=== PATIENT | male | born 1995 | race Hispanic/Latino ===

== ENCOUNTER 2018-11-04 07:30 | Emergency (ER) | payer SELFPAY ==
[2018-11-04 08:32] LABS: Absolute Lymphocytes (CBC) 1.7 K/uL (0.7-4.9); Absolute Monocytes 0.4 K/uL (0.1-1.3); Absolute Neutrophil 4.4 K/uL (1.8-8.0); Basophils % 0.6 % (0-1.3); Eosinophils % 0.8 % (0-4.4); Hematocrit 43.6 % (39.6-49.0); Lymphocytes % 25.3 % (15.3-44.8); MPV 9.2 fL (7.6-11.3); Monocytes % 6.6 % (3.3-12.3); RBC Red Blood Cell Count 4.94 M/uL (4.33-5.43)
[2018-11-04 08:37] LABS: Protime INR 1.04
[2018-11-04] MEDS ORDERED: NA CHLORIDE 0.9% 1,000 ML ONE ×3 (08:42→11:20)
[2018-11-04 08:54] LABS: Barbiturates NEGATIVE (NEGATIVE); Benzodiazepines NEGATIVE (NEGATIVE); Cocaine NEGATIVE (NEGATIVE); METHAMPHETAM NEGATIVE (NEGATIVE); Methadone NEGATIVE (NEGATIVE); Opiates NEGATIVE (NEGATIVE); Phencyclidine NEGATIVE (NEGATIVE); THC Cannibis NEGATIVE (NEGATIVE)
[2018-11-04 08:58] LABS: ALT/SGPT 95 U/L (12-78); AST/SGOT 34 U/L (15-37); Albumin 4.5 g/dL (3.4-5.0); Alkaline Phosphatase 76 U/L (45-117); BUN Blood Urea Nitrogen 21 mg/dL (7-18); Bicarbonate 27 mmol/L (21-32); Bilirubin Direct < 0.1 mg/dL (0-0.2); Bilirubin Total 0.2 mg/dL (0.2-1.0); Creatine Phosphokinase 189 U/L (39-308); Glucose Level 109 mg/dL (74-106); Magnesium 2.1 mg/dL (1.8-2.4); NT PRO-BNP 9 pg/mL (<125); Potassium 3.5 mmol/L (3.5-5.1); Sodium Level 139 mmol/L (136-145); T3 Free 3.51 pg/mL (2.18-3.98); Troponin (Emerg Dept Use Only) < 0.02 ng/mL (0.0-0.045)
[2018-11-04 09:14] LABS: Urine Blood NEGATIVE (NEG); Urine Glucose NEGATIVE (NEG); Urine Protein 1+ (NEG)
[2018-11-04] MEDS ORDERED: LORazepam 2 MG/ML VIAL ONE ×2 (09:28→12:02)
--- NOTE | 2018-11-04 09:39 | RAD REPORT ---
EXAM DESCRIPTION: RAD - Chest Single View - 11/04/2018 8:42 am CLINICAL HISTORY: PALPITATIONS Chest pain. COMPARISON: CHEST SINGLE VIEW dated 07/02/2015 FINDINGS: Portable technique limits examination quality. The lungs are grossly clear. The heart is normal in size. No displaced fractures. IMPRESSION: No acute intrathoracic process suspected.
--- NOTE | 2018-11-04 11:40 | ER ---
Nurse's Notes [facility] Name: Harrison Chaes Age: 23 yrs Sex: Male : 1995 Arrival Date: 11/04/2018 Time: 07:34 Bed 16 Private MD: Diagnosis: Insomnia;Unspecified mood [affective] disorder-Depression Presentation: 11/04 08:09 Presenting complaint: Patient states: "I haven't been able to sleep in about 6 months." ss PT denies current suicidal/ homicidal ideations. Pt reports he feels anxious and depressed because of his inability to sleep. Transition of care: patient was not received from another setting of care. Onset of symptoms was March 2018. Risk Assessment: Do you want to hurt yourself or someone else? Patient reports no desire to harm self or others. Initial Sepsis Screen: Does the patient meet any 2 criteria? Does the patient have a suspected source of infection? No. Patient's initial sepsis screen is negative. Care prior to arrival: None. 08:09 Method Of Arrival: Ambulatory ss 08:09 Acuity: HERON 2 ss Historical: - Allergies: 08:14 No Known Allergies; ss - Home Meds: 08:14 None [Active]; ss - PMHx: 08:14 None; ss - PSHx: 08:14 R hand; ss - Immunization history:: Adult Immunizations up to date. - Social history:: Smoking status: Patient/guardian denies using tobacco. - Ebola Screening: : Patient denies exposure to infectious person Patient denies travel to an Ebola-affected area in the 21 days before illness onset. Screenin:29 Abuse screen: Denies threats or abuse. Nutritional screening: No deficits noted. tw2 Tuberculosis screening: No symptoms or risk factors identified. Fall Risk None identified. Assessment: 08:00 General: Appears uncomfortable, Behavior is anxious, Denies fever, Pt. reports not rb1 being able to sleep for several months. He admits to taking two Xanax last night to try to get some sleep.. Pain: Denies pain. Neuro: Level of Consciousness is awake, alert, obeys commands, Oriented to person, place, time, situation. Cardiovascular: Capillary refill < 3 seconds is brisk in bilateral fingers Rhythm is sinus tachycardia. Respiratory: Airway is patent Respiratory effort is even, unlabored, Respiratory pattern is regular, symmetrical. GI: No signs and/or symptoms were reported involving the gastrointestinal system. : No signs and/or symptoms were reported regarding the genitourinary system. Derm: Skin is pink, warm \\T\\ dry. Musculoskeletal: Range of motion: intact in all extremities. 09:00 Reassessment: pt. is feeling anxious. Provider notified. rb1 11:00 Reassessment: Patient appears in no apparent distress at this time. Patient and/or rb1 family updated on plan of care and expected duration. Pain level reassessed. Patient is alert, oriented x 3, equal unlabored respirations, skin warm/dry/pink. Patient denies pain at this time. 12:00 Reassessment: Patient appears in no apparent distress at this time. No changes from [facility] previously documented assessment. 12:00 Reassessment: Discharge pending due to waiting for father to come and transport the pt. rb1 home. 12:26 Reassessment: Pt. continues to wait for transportation due to Ativan administration. rb1 13:00 Reassessment: Patient appears in no apparent distress at this time. Patient and/or rb1 family updated on plan of care and expected duration. Pain level reassessed. Patient is alert, oriented x 3, equal unlabored respirations, skin warm/dry/pink. Mother is on her way. Patient denies pain at this time. Vital Signs: 08:14 BP 133 / 96; Pulse 116; Resp 23; Temp 99.6(TE); Pulse Ox 99% on R/A; Weight 86.18 kg; Height 6 ft. 0 in. (182.88 cm); Pain 0/10; 09:00 BP 174 / 85; Pulse 123; Resp 22; Pulse Ox 100% on R/A; Pain 0/10; rb1 11:00 BP 123 / 94; Pulse 103; Resp 16; Pulse Ox 100% on R/A; Pain 0/10; rb1 12:00 BP 139 / 75; Pulse 98; Resp 15; Pulse Ox 100% ; Pain 0/10; rb1 13:00 BP 128 / 81; Pulse 95; Resp 16; Pulse Ox 100% on R/A; Pain 0/10; rb1 08:14 Body Mass Index 25.77 (86.18 kg, 182.88 cm) ED Course: 07:34 Patient arrived in ED. mr 07:58 Page, Rene, PA is PHCP. cp 07:58 Rene Barnard MD is Attending Physician. cp 08:13 Triage completed. ss 08:14 Arm band placed on right wrist. ss 08:27 Lakshmi Cali, RN is Primary Nurse. rb1 08:29 Bed in low position. Call light in reach. potline monitor on. Pulse ox on. NIBP on. tw2 08:41 X-ray completed. Portable x-ray completed in exam room. Patient tolerated procedure la2 well. 08:41 Initial lab(s) drawn, by me, sent to lab. EKG done. Inserted saline lock: 20 gauge in em1 left antecubital area, using aseptic technique. Blood collected. 08:42 XRAY Chest (1 view) In Process Unspecified. EDMS 09:21 Inserted saline lock: 20 gauge in right antecubital area, using aseptic technique. em1 Missed attempt(s): 20 gauge in right hand. Bleeding controlled, band aid applied, catheter tip intact. 13:12 No provider procedures requiring assistance completed. IV discontinued, intact, rb1 bleeding controlled, No redness/swelling at site. Pressure dressing applied. Administered Medications: 08:30 Drug: NS 0.9% 1000 ml Route: IV; Rate: 1 bolus; Site: left antecubital; rb1 09:22 Drug: NS 0.9% 1000 ml Route: IV; Rate: 1 bolus; Site: right antecubital; rb1 10:38 Follow up: IV Status: Completed infusion rb1 09:22 Drug: Ativan 0.5 mg Route: IVP; Site: right antecubital; rb1 09:40 Follow up: Response: No adverse reaction; Anxiety decreased rb1 11:10 Drug: NS 0.9% 1000 ml Route: IV; Rate: 1 bolus; Site: left antecubital; rb1 12:16 Follow up: IV Status: Completed infusion rb1 12:01 Drug: Ativan 0.5 mg Route: IVP; Site: left antecubital; rb1 12:16 Follow up: Response: No adverse reaction; Anxiety decreased rb1 Outcome: 11:39 Discharge ordered by MD. cp 13:12 Patient left the ED. rb1 13:12 Discharged to home ambulatory, with family. rb1 13:12 Condition: stable 13:12 Discharge instructions given to patient, Instructed on discharge instructions, follow up and referral plans. Demonstrated understanding of instructions, follow-up care, Prescriptions given X none Signatures: Dispatcher [employer] EDMS Trinity Alonso, Edson em1 Dana Gonzalez RN RN ss Rene Davey PA PA cp Barber, Rebecca, RN RN rb1 Lisa Akhtar RN RN tw2 Patricia Echevarria2 Corrections: (The following items were deleted from the chart) 09:25 09:00 Reassessment: pt. is feeling anxious. rb1 rb1 14:50 14:47 Patient left the ED. rb1 rb1
--- NOTE | 2018-11-04 11:41 | EDPHYS ---
Physician Documentation [facility] Name: Harrison Chase Age: 23 yrs Sex: Male : 1995 Arrival Date: 11/04/2018 Time: 07:34 Bed 16 Private MD: ED Physician Rene Barnard HPI: 11/04 08:12 This 23 yrs old Male presents to ER via Unassigned with complaints of Troubl cp sleeping,fast heart rate. 08:12 The patient presents with a history of heart racing. cp 08:12 Context: The symptoms occur at rest. Onset: The symptoms/episode began/occurred today. cp Duration: The patient or guardian reports a single episode, that is still ongoing. 08:12 Associated signs and symptoms: Pertinent positives: insomnia, depression, Pertinent cp negatives: anxiety, chest pain, fever, lightheadedness, SOB, syncope. Historical: - Allergies: 08:14 No Known Allergies; ss - Home Meds: 08:14 None [Active]; ss - PMHx: 08:14 None; ss - PSHx: 08:14 R hand; ss - Immunization history:: Adult Immunizations up to date. - Social history:: Smoking status: Patient/guardian denies using tobacco. - Ebola Screening: : Patient denies exposure to infectious person Patient denies travel to an Ebola-affected area in the 21 days before illness onset. ROS: 08:15 Constitutional: Negative for body aches, chills, fever, poor PO intake. cp 08:15 Eyes: Negative for injury, pain, redness, and discharge. cp 08:15 ENT: Negative for drainage from ear(s), ear pain, sore throat, difficulty swallowing, difficulty handling secretions. 08:15 Cardiovascular: Positive for palpitations, Negative for chest pain, edema. 08:15 Respiratory: Negative for cough, shortness of breath, wheezing. 08:15 Abdomen/GI: Negative for abdominal pain, nausea, vomiting, and diarrhea. 08:15 Back: Negative for pain at rest, pain with movement, radiated pain. 08:15 Neuro: Negative for altered mental status, headache, weakness. 08:15 Psych: Positive for insomnia. 08:15 All other systems are negative. Exam: 08:11 ECG was reviewed by the Attending Physician. cp 08:20 Constitutional: The patient appears in no acute distress, alert, awake, cp non-diaphoretic, non-toxic, well developed, well nourished. 08:20 Head/Face: Normocephalic, atraumatic. Eyes: Pupils equal round and reactive to light, cp extra-ocular motions intact. Lids and lashes normal. Conjunctiva and sclera are non-icteric and not injected. Cornea within normal limits. Periorbital areas with no swelling, redness, or edema. ENT: Nares patent. No nasal discharge, no septal abnormalities noted. Tympanic membranes are normal and external auditory canals are clear. Oropharynx with no redness, swelling, or masses, exudates, or evidence of obstruction, uvula midline. Mucous membranes moist. Neck: Trachea midline, no thyromegaly or masses palpated, and no cervical lymphadenopathy. Supple, full range of motion without nuchal rigidity, or vertebral point tenderness. No Meningismus. Chest/axilla: Normal chest wall appearance and motion. Nontender with no deformity. No lesions are appreciated. 08:20 Cardiovascular: Rate: tachycardic, Rhythm: regular, Pulses: Pulses are 2+ in right radial artery and left radial artery. Edema: is not appreciated, JVD: is not appreciated. 08:20 Respiratory: the patient does not display signs of respiratory distress, Respirations: normal, no use of accessory muscles, no retractions, no splinting, no tachypnea, labored breathing, is not present, Breath sounds: are clear throughout, no decreased breath sounds, no stridor, no wheezing. 08:20 Abdomen/GI: Inspection: abdomen appears normal, Bowel sounds: active, all quadrants, Palpation: abdomen is soft and non-tender, in all quadrants, rebound tenderness, is not appreciated, voluntary guarding, is not appreciated, involuntary guarding, is not appreciated. 08:20 Back: pain, is absent, ROM is normal. 08:20 Skin: cellulitis, is not appreciated, no rash present. 08:20 Neuro: Orientation: to person, place \T\ time. Mentation: is normal, Cerebellar function: is grossly normal, Motor: moves all fours, strength is normal, Sensation: is normal. 09:00 ECG was reviewed by the Attending Physician. cp Vital Signs: 08:14 BP 133 / 96; Pulse 116; Resp 23; Temp 99.6(TE); Pulse Ox 99% on R/A; Weight 86.18 kg; ss Height 6 ft. 0 in. (182.88 cm); Pain 0/10; 09:00 BP 174 / 85; Pulse 123; Resp 22; Pulse Ox 100% on R/A; Pain 0/10; rb1 11:00 BP 123 / 94; Pulse 103; Resp 16; Pulse Ox 100% on R/A; Pain 0/10; rb1 12:00 BP 139 / 75; Pulse 98; Resp 15; Pulse Ox 100% ; Pain 0/10; rb1 13:00 BP 128 / 81; Pulse 95; Resp 16; Pulse Ox 100% on R/A; Pain 0/10; rb1 08:14 Body Mass Index 25.77 (86.18 kg, 182.88 cm) ss MDM: 08:03 Patient medically screened. cp 11:38 Data reviewed: vital signs, nurses notes, lab test result(s), EKG, radiologic studies, cp plain films, I have discussed the patient's presentation/case with the attending Emergency Department Physician; and as a result, I will discharge patient. 11:38 Test interpretation: by ED physician or midlevel provider: ECG, plain radiologic cp studies. Counseling: I had a detailed discussion with the patient and/or guardian regarding: the historical points, exam findings, and any diagnostic results supporting the discharge/admit diagnosis, lab results, radiology results, the need for outpatient follow up, for definitive care, a family practitioner, to return to the emergency department if symptoms worsen or persist or if there are any questions or concerns that arise at home. Response to treatment: the patient's symptoms have markedly improved after treatment, and as a result, I will discharge patient. ED course: VSS. Patient observed resting in ED. Will discharge to home with family member for continued monitoring. 11/04 08:09 Order name: Basic Metabolic Panel; Complete Time: 09:10 cp 11/04 09:10 Interpretation: Normal except: GLUC 109; BUN 21. cp 11/04 08:09 Order name: CBC with Diff; Complete Time: 09:10 cp 11/04 08:09 Order name: LFT's; Complete Time: 09:10 cp 11/04 08:09 Order name: Magnesium; Complete Time: 09:10 cp 11/04 08:09 Order name: NT PRO-BNP; Complete Time: 09:10 cp 11/04 08:09 Order name: PT-INR; Complete Time: 09:10 cp 11/04 08:09 Order name: Troponin (emerg Dept Use Only); Complete Time: 09:10 cp 11/04 08:09 Order name: XRAY Chest (1 view); Complete Time: 10:45 cp 11/04 08:09 Order name: UDS; Complete Time: 09:10 cp 11/04 08:09 Order name: CK; Complete Time: 09:10 cp 11/04 08:09 Order name: ETOH Level; Complete Time: 09:10 cp 11/04 08:11 Order name: TSH; Complete Time: 09:10 cp 11/04 08:11 Order name: T3 Free; Complete Time: 09:10 cp 11/04 08:35 Order name: Urine Dipstick--Ancillary (enter results); Complete Time: 09:20 bd 11/04 08:09 Order name: EKG; Complete Time: 08:10 cp 11/04 08:09 Order name: Cardiac monitoring; Complete Time: 08:40 cp 11/04 08:09 Order name: EKG - Nurse/Tech; Complete Time: 08:41 cp 11/04 08:09 Order name: IV Saline Lock; Complete Time: 08:41 cp 11/04 08:09 Order name: Labs collected and sent; Complete Time: 08:41 cp 11/04 08:09 Order name: O2 Per Protocol; Complete Time: 08:47 cp 11/04 08:09 Order name: O2 Sat Monitoring; Complete Time: 08:47 cp 11/04 08:51 Order name: IV; Complete Time: 09:08 cp 11/04 13:29 Order name: EKG Electrocardiogram EDMS EC:11 Rate is 114 beats/min. Rhythm is regular. HI interval is normal. QRS interval is cp normal. QT interval is normal. Interpreted by me. Reviewed by me. 09:00 Rate is 112 beats/min. Rhythm is regular. HI interval is normal. QRS interval is cp normal. QT interval is normal. Interpreted by me. Reviewed by me. Administered Medications: 08:30 Drug: NS 0.9% 1000 ml Route: IV; Rate: 1 bolus; Site: left antecubital; rb1 09:22 Drug: NS 0.9% 1000 ml Route: IV; Rate: 1 bolus; Site: right antecubital; rb1 10:38 Follow up: IV Status: Completed infusion rb1 09:22 Drug: Ativan 0.5 mg Route: IVP; Site: right antecubital; rb1 09:40 Follow up: Response: No adverse reaction; Anxiety decreased rb1 11:10 Drug: NS 0.9% 1000 ml Route: IV; Rate: 1 bolus; Site: left antecubital; rb1 12:16 Follow up: IV Status: Completed infusion rb1 12:01 Drug: Ativan 0.5 mg Route: IVP; Site: left antecubital; rb1 12:16 Follow up: Response: No adverse reaction; Anxiety decreased rb1 Disposition: 11/05 07:35 Co-signature as Attending Physician, Rene Barnard MD I agree with the assessment and darwin plan of care. Disposition: 11/04/18 11:39 Discharged to Home. Impression: Insomnia, Unspecified mood [affective] disorder - Depression. - Condition is Stable. - Discharge Instructions: Insomnia, Persistent Depressive Disorder. - Medication Reconciliation Form, Thank You Letter, Antibiotic Education, Prescription Opioid Use form. - Follow up: Private Physician; When: 1 - 2 days; Reason: Recheck today's complaints. - Problem is an ongoing problem. - Symptoms have improved. Signatures: Dispatcher [employer] EDMS Rene Barnard MD MD cha Smirch, Shelby, RN RN Rene Cruz PA PA cp Barber, Rebecca, RN RN rb1 Corrections: (The following items were deleted from the chart) 11/04 14:07 11:39 11/04/2018 11:39 Discharged to Home. Impression: Insomnia. Condition is Stable. cp Forms are Medication Reconciliation Form, Thank You Letter, Antibiotic Education, Prescription Opioid Use. Follow up: Private Physician; When: 1 - 2 days; Reason: Recheck today's complaints. Problem is an ongoing problem. Symptoms have improved. cp 14:08 14:07 11/04/2018 11:39 Discharged to Home. Impression: Insomnia; Unspecified mood cp [affective] disorder. Condition is Stable. Discharge Instructions: Insomnia. Forms are Medication Reconciliation Form, Thank You Letter, Antibiotic Education, Prescription Opioid Use. Follow up: Private Physician; When: 1 - 2 days; Reason: Recheck today's complaints. Problem is an ongoing problem. Symptoms have improved. cp 14:47 14:08 11/04/2018 11:39 Discharged to Home. Impression: Insomnia; Unspecified mood rb1 [affective] disorder - Depression. Condition is Stable. Discharge Instructions: Insomnia, Persistent Depressive Disorder. Forms are Medication Reconciliation Form, Thank You Letter, Antibiotic Education, Prescription Opioid Use. Follow up: Private Physician; When: 1 - 2 days; Reason: Recheck today's complaints. Problem is an ongoing problem. Symptoms have improved. cp
--- NOTE | 2018-11-04 20:18 | EKG ---
Test Date: 2018-11-04 Test Time: 08:01:01 Char Filter Operator Helper: SUSAN MEASUREMENT RESULTS: Intervals: Rate: 114 IA: 128 QRSD: 90 QT: 286 QTc: 394 Kathleen: P: 79 IA: 128 QRS: 81 T: 5 INTERPRETIVE STATEMENTS: Sinus tachycardia Nonspecific T wave abnormality Abnormal ECG Compared to ECG 07/02/2015 00:12:11 No significant changes Electronically Signed On 11-04-18 20:17:49 CDT by Rene Kenyon
== END 2018-11-04 14:47 | disposition home or self-care (01) ==
LOC: ER 07:30
DX: G47.00 Insomnia, unspecified (principal); F32.9 Major depressive disorder, single episode, unspecified
CPT/HCPCS: 36415; 71045; 80048; 80076; 80307; 80320; 81003; 82550; 83735; 83880; 84443; 84481; 84484; 85025; 85610; 93005; 99285; J7030

== ENCOUNTER 2023-04-09 13:52 | Emergency (ER) | payer OTHER ==
--- OUTSIDE RECORDS SUMMARY | 2023-04-09 15:00 | XMS REPORT | Continuity of Care Document ---
:1995 Author Organization [facility] t Address [address] [place] [address] Care Team Providers Name Role Phone Unavailable Unavailable Unavailable Problems This patient has no known problems. Allergies, Adverse Reactions, Alerts This patient has no known allergies or adverse reactions. Medications This patient has no known medications. Procedures This patient has no known procedures. Encounters Start End Encounter Admission Attending Care Care Encounter Source Date/Time Date/Time Type Type Clinicians Facility Department ID 2023-03-02 2023-03-02 Outpatient [facility] [id number] Bret 10:23:46 10:23:46 [id number] Ian Randle 2022-09-26 2022-09-26 Outpatient [facility] Bret 10:03:06 10:03:06 [id number] Ian Randle 2022-07-12 2022-07-12 Outpatient [facility] [id number] Bret 16:05:23 16:05:23 [id number] Ian Randle 2022-07-11 2022-07-11 Outpatient [facility] [id number] Bret 09:53:37 09:53:37 [id number] Ian Randle Results Test Description Test Time Test Comments Results Result Comments Source COMPREHENSIVE METABOLIC PANEL 2022-08-26 06:23:16 Test Item Value Reference Range Interpretation Comme nts GLUCOSE (test code = 2217) 94 MG/DL 70-99 BUN (test code = 2208) 18 MG/DL 6-20 CREATININE (test code = 1.05 MG/DL 0.80-1.40 2213) eGFR (2020 CKD-EPI) (test 99 ML/MIN/1.73 >60 code = 24546) CALC BUN/CREAT (test code = 17 RATIO 02-08) SODIUM (test code = 223) 140 MEQ/L 133-146 POTASSIUM (test code = 2228) 3.8 MEQ/L 3.5-5.4 CHLORIDE (test code = 2215) 103 MEQ/L 95-107 CARBON DIOXIDE (test code = 24 MEQ/L -2205) CALCIUM (test code = 220) 9.6 MG/DL 8.5-10.5 PROTEIN, TOTAL (test code = 7.8 G/DL 6.1-8.3 2228) ALBUMIN (test code = 220) 5.1 G/DL 3.5-5.2 CALC GLOBULIN (test code = 2.7 G/DL 1.9-3.7 2239) CALC A/G RATIO (test code = 1.9 RATIO 1.0-2.6 2233) BILIRUBIN, TOTAL (test code 0.4 MG/DL See_Comment [Automated message] The = 2206) system which ge nerated this result transmit melvi reference range: <=1.2. T he reference range was not u sed to interpret this result as normal/abnormal . ALKALINE PHOSPHATASE (test 79 U/L 40-115 code = 2204) AST (test code = 2218) 23 U/L 9-50 ALT (test code = 2219) 39 U/L 5-50 LIPID [id number] 06:23:16 Test Item Value Reference Range Interpretation Comments CHOLESTEROL (test 169 MG/DL <200 code = 2210) TRIGLYCERIDES (test 51 MG/DL <150 code = 2232) HDL CHOLESTEROL (test 50 MG/DL >39 code = 2220) CALC LDL CHOL (test 106 MG/DL <100 H NOTE: C ALCULATED LDL code = 2237) IS BASED ON WAYNE-PIZARRO METHOD WHICHINCLUDES ADJUSTABLE TRIGLYCERIDE:VL DL CHOLESTEROL RAT IO.THIS FACTOR VARIES B Y MEASURED TRIGLY CERIDE AND NON-HDLCHOL ESTEROL CONCENTRATIONS WITH INCREASED CALCU LATED LDL SEENIN HIGH ER TRIGLYCERIDE OR LOWER NON-HDL SPECIME NS. FOR MOREINFORMATION , SEE CLIENT ANNOUNCE MENT AT [email or web address] RATIO LDL/HDL 2.12 RATIO <3.55 UNLESS O THERWISE (test code = 2238) INDICATED , ALL TESTING PERFORMED [facility], [place]. [address] [place] [address] [facility] DIRECTOR: DEBBIE JEAN M.D. [facility] NUMBER [id number] [facility] [place] N O. [id number]
[2023-04-09] MEDS ORDERED: NA CHLORIDE 0.9% 1,000 ML ONE (15:08)
[2023-04-09 15:09] LABS: Absolute Lymphocytes (CBC) 1.1 K/uL (0.7-4.9); Hematocrit 43.6 % (39.6-49.0); Lymphocytes % 16.9 % (15.3-44.8); MCV 87.3 fL (80-100); MPV 8.5 fL (7.6-11.3); Platelets 236 thou/uL (152-406); RBC Red Blood Cell Count 4.99 M/uL (4.33-5.43)
[2023-04-09 15:12] LABS: Protime INR 1.12
[2023-04-09 15:18] LABS: Specific Gravity 1.015 (1.005-1.030); Urine Bacteria <20 /HPF (<20); Urine Bilirubin NEGATIVE (Negative); Urine Blood Negative (Negative); Urine Clarity Turbid (Clear); Urine Color Light-Yellow (Yellow); Urine Glucose NEGATIVE (Negative); Urine Mucus Slight /HPF (None Seen); Urine Protein NEGATIVE (Negative); Urine RBC <5 /HPF (None Seen); Urine Urobilinogen Normal (Normal); Urine pH 6.5 (5.0-7.0)
[2023-04-09 15:20] LABS: Barbiturates NEGATIVE (NEGATIVE); Benzodiazepines NEGATIVE (NEGATIVE); Cocaine NEGATIVE (NEGATIVE); METHAMPHETAM NEGATIVE (NEGATIVE); Methadone NEGATIVE (NEGATIVE); Opiates NEGATIVE (NEGATIVE); Phencyclidine NEGATIVE (NEGATIVE); THC Cannibis NEGATIVE (NEGATIVE)
[2023-04-09 15:29] LABS: ALT/SGPT 35 U/L (16-61); AST/SGOT 22 U/L (15-37); Albumin 4.2 g/dL (3.4-5.0); Alkaline Phosphatase 66 U/L (45-117); BUN Blood Urea Nitrogen 8 mg/dL (7-18); Bicarbonate 25 mEq/L (21-32); Bilirubin Direct 0.2 mg/dL (0-0.2); Bilirubin Indirect, Calculated 0.6 mg/dL (0.2-0.8); Bilirubin Total 0.8 mg/dL (0.2-1.0); Glomerular Filtration Rate 115 ml/min (=/>90); Glucose Level 129 mg/dL (74-106); Sodium Level 135 mEq/L (136-145)
--- NOTE | 2023-04-09 16:40 | EDPHYS ---
Physician Documentation [facility] Name: Harrison Chase Age: 27 yrs Sex: Male : 1995 Arrival Date: 04/09/2023 Time: 13:52 Bed 17 Private MD: ED Physician Rene Barnard HPI: 04/09 16:26 This 27 yrs old Male presents to ER via Ambulatory with complaints of Mental darwin Health Eval. 16:26 The patient presents to the emergency department with anxiety, suicide ideation, and darwin the patient has a plan, to hang oneself. Onset: The symptoms/episode began/occurred 2 day(s) ago. Past psychiatric history: Prior diagnosis: depression, Psychiatric medications include: none. Associated signs and symptoms: Pertinent positives;. Historical: - Allergies: 14:24 No Known Allergies; cm10 - PMHx: 14:24 Hypertensive disorder; Depressive disorder; cm10 - Immunization history:: Adult Immunizations up to date. - Social history:: Smoking status: unknown. ROS: 16:33 Constitutional: Negative for fever, chills, and weight loss, Eyes: Negative for injury, darwin pain, redness, and discharge, ENT: Negative for injury, pain, and discharge, Neck: Negative for injury, pain, and swelling, Cardiovascular: Negative for chest pain, palpitations, and edema, Respiratory: Negative for shortness of breath, cough, wheezing, and pleuritic chest pain, Abdomen/GI: Negative for abdominal pain, nausea, vomiting, diarrhea, and constipation, Back: Negative for injury and pain, : Negative for injury, bleeding, discharge, and swelling, MS/Extremity: Negative for injury and deformity, Skin: Negative for injury, rash, and discoloration, Neuro: Negative for headache, weakness, numbness, tingling, and seizure, Allergy/Immunology: Negative for hives, rash, and allergies, Endocrine: Negative for neck swelling, polydipsia, polyuria, polyphagia, and marked weight changes, Hematologic/Lymphatic: Negative for swollen nodes, abnormal bleeding, and unusual bruising. 16:33 Psych: Positive for anxiety, depression, suicidal ideation. Exam: 16:33 Constitutional: This is a well developed, well nourished patient who is awake, alert, darwin and in no acute distress. Head/Face: Normocephalic, atraumatic. Eyes: Pupils equal round and reactive to light, extra-ocular motions intact. Lids and lashes normal. Conjunctiva and sclera are non-icteric and not injected. Cornea within normal limits. Periorbital areas with no swelling, redness, or edema. ENT: Nares patent. No nasal discharge, no septal abnormalities noted. Tympanic membranes are normal and external auditory canals are clear. Oropharynx with no redness, swelling, or masses, exudates, or evidence of obstruction, uvula midline. Mucous membranes moist. Neck: Trachea midline, no thyromegaly or masses palpated, and no cervical lymphadenopathy. Supple, full range of motion without nuchal rigidity, or vertebral point tenderness. No Meningismus. Chest/axilla: Normal chest wall appearance and motion. Nontender with no deformity. No lesions are appreciated. Cardiovascular: Regular rate and rhythm with a normal S1 and S2. No gallops, murmurs, or rubs. Normal PMI, no JVD. No pulse deficits. Respiratory: Lungs have equal breath sounds bilaterally, clear to auscultation and percussion. No rales, rhonchi or wheezes noted. No increased work of breathing, no retractions or nasal flaring. Abdomen/GI: Soft, non-tender, with normal bowel sounds. No distension or tympany. No guarding or rebound. No evidence of tenderness throughout. Back: No spinal tenderness. No costovertebral tenderness. Full range of motion. Male : Normal genitalia with no discharge or lesions. Skin: Warm, dry with normal turgor. Normal color with no rashes, no lesions, and no evidence of cellulitis. MS/ Extremity: Pulses equal, no cyanosis. Neurovascular intact. Full, normal range of motion. Neuro: Awake and alert, GCS 15, oriented to person, place, time, and situation. Cranial nerves II-XII grossly intact. Motor strength 5/5 in all extremities. Sensory grossly intact. Cerebellar exam normal. Normal gait. Psych: Awake, alert, with orientation to person, place and time. Behavior, mood, and affect are within normal limits. 16:33 ECG was reviewed by the Attending Physician. Vital Signs: 14:21 BP 142 / 90; Pulse 103; Resp 18; Temp 98.2; Pulse Ox 100% ; Weight 88.45 kg; Height 5 cm10 ft. 10 in. ; 22:45 BP 142 / 72; Pulse 101; Resp 17; Temp 98.7(O); Pulse Ox 96% on R/A; Pain 0/10; me1 23:50 BP 138 / 94; Pulse 91; Resp 18 S; Temp 98.1(TE); Pulse Ox 98% on R/A; as6 14:21 Body Mass Index 27.98 (88.45 kg, 177.8 cm) cm10 22:45 Pain Scale: Adult me1 MDM: 14:17 Patient medically screened. darwin 16:35 Differential diagnosis: drug withdrawal. acute psychotic break, depression. Data [facility] reviewed: vital signs, nurses notes, lab test result(s), EKG. Consideration of Admission/Observation Escalation of care including admission/observation considered. I considered the following discharge prescriptions or medication management in the emergency department Medications were administered in the Emergency Department. See MAR. Independent interpretation of the following test(s) in the Emergency Department EKG: See my EKG interpretation above. Test considered but Not performed: X-ray: NO CT, NO CXR. Historians other than the Patient: Family Member: MOM, CONCERNED AND WELL INFORMED. Care significantly affected by the following chronic conditions: Hypertension. Counseling: I had a detailed discussion with the patient and/or guardian regarding the historical points, exam findings, and any diagnostic results supporting the discharge/admit diagnosis, lab results, the need to transfer to another facility, for higher level of care, [facility] does not immediately have the required specialist. 04/09 14:17 Order name: Acetaminophen; Complete Time: 16:17 [facility] 04/09 14:17 Order name: Basic Metabolic Panel; Complete Time: 16:17 [facility] 04/09 14:17 Order name: CBC with Diff; Complete Time: 16:17 [facility] 04/09 14:17 Order name: ETOH Level; Complete Time: 16:17 [facility] 04/09 14:17 Order name: Hepatic Function; Complete Time: 16:17 [facility] 04/09 14:17 Order name: PT-INR; Complete Time: 16:17 [facility] 04/09 14:17 Order name: Ptt, Activated; Complete Time: 16:17 [facility] 04/09 14:17 Order name: Urinalysis w/ reflexes; Complete Time: 16:17 [facility] 04/09 14:17 Order name: Urine Drug Screen; Complete Time: 16:17 [facility] 04/09 19:45 Order name: BMP [facility] 04/09 14:17 Order name: EKG; Complete Time: 14:18 [facility] 04/09 14:43 Order name: Diet Finger Food; Complete Time: 14:43 cm10 04/09 16:18 Order name: Diet Regular; Complete Time: 16:19 [facility] 04/09 14:17 Order name: EKG - Nurse/Tech; Complete Time: 14:59 [facility] 04/09 14:17 Order name: IV Saline Lock; Complete Time: 14:59 [facility] 04/09 14:17 Order name: Labs collected and sent; Complete Time: 14:59 [facility] 04/09 14:17 Order name: Suicide Screening ([place]); Complete Time: 14:59 [facility] EC:33 Rate is 100 beats/min. Rhythm is regular. QRS [place] is Normal. ID interval is normal. darwin QRS interval is normal. QT interval is prolonged at 497 msec. No Q waves. T waves are Normal. No ST changes noted. Clinical impression: NSR w/ Non-specific ST/T Changes and No evidence of ischemia. Interpreted by me. Reviewed by me. Administered Medications: 14:59 Drug: NS 0.9% IV 1000 ml Route: IV; Rate: 1 bolus; Site: right antecubital; ld1 19:11 Follow up: IV Status: Completed infusion; IV Intake: 1000ml me1 18:29 Drug: Potassium PO Effervescent Tablet 50 mEq Route: PO; me1 19:29 Follow up: Response: No adverse reaction cm10 21:02 Follow up: Response: No adverse reaction me1 20:57 Not Given (K+ replaced. ): Potassium PO Effervescent Tablet 25 mEq PO once; dissolve in me1 4 ounces of water or juice Disposition Summary: 04/09/23 16:39 Transfer Ordered Transfer Location: Psych Facility darwin Reason: Higher level of care darwin Condition: Fair darwin Problem: new darwin Symptoms: are unchanged darwin Accepting Physician: TO PSYCH(04/09/23 23:57) me1 Diagnosis - Suicidal ideations darwin - Adjustment disorder with anxiety darwin - Adjustment disorder with mixed anxiety and depressed mood darwin Forms: - Medication Reconciliation Form darwin - SBAR form darwin Signatures: Dispatcher [employer] EDRene Stout MD MD cha Sims, Lauren, RN RN ld1 Sophia Vazquez RN RN cm10 Carol Dumont, RN RN me1 Corrections: (The following items were deleted from the chart) 23:57 16:39 TO PSYCH [facility]
--- NOTE | 2023-04-09 16:40 | ER ---
Nurse's Notes [facility] Name: Harrison Chase Age: 27 yrs Sex: Male : 1995 Arrival Date: 04/09/2023 Time: 13:52 Bed 17 Private MD: Diagnosis: Suicidal ideations;Adjustment disorder with anxiety;Adjustment disorder with mixed anxiety and depressed mood Presentation: 04/09 14:21 Chief complaint: Patient states: that he is here for a mental health eval. Pt states cm10 that he is having thoughts of wanting to hurt himself. Pt states that his plan is to "take a belt and hang myself". When asked if something happened that is making him have these thoughts pt states, "yeah, I have been reading up on the COVID vaccines and how people who got them and I am just paranoid about it". Coronavirus screen: Vaccine status: Patient reports receiving the 2nd dose of the covid vaccine. Ebola Screen: Patient denies travel to an Ebola-affected area in the 21 days before illness onset. No symptoms or risks identified at this time. Initial Sepsis Screen: Does the patient meet any 2 criteria? No. Patient's initial sepsis screen is negative. Does the patient have a suspected source of infection? No. Patient's initial sepsis screen is negative. Risk Assessment: Do you want to hurt yourself or someone else? Patient reports desire/thoughts of hurting themselves or someone else. Provider notified. Onset of symptoms was April 09, 2023. 14:21 Method Of Arrival: Ambulatory cm10 14:21 Acuity: HERON 2 cm10 Historical: - Allergies: 14:24 No Known Allergies; cm10 - PMHx: 14:24 Hypertensive disorder; Depressive disorder; cm10 - Immunization history:: Adult Immunizations up to date. - Social history:: Smoking status: unknown. Screenin:30 [facility] ED Fall Risk Assessment (Adult) History of falling in the last 3 months, me1 including since admission No falls in past 3 months (0 pts) Confusion or Disorientation No (0 pts) Intoxicated or Sedated No (0 pts) Impaired Gait No (0 pts) Mobility Assist Device Used No (0 pt). Abuse screen: Denies threats or abuse. Nutritional screening: No deficits noted. Tuberculosis screening: No symptoms or risk factors identified. Assessment: 16:00 Reassessment: No changes from previously documented assessment. Patient and/or family me1 updated on plan of care and expected duration. Pain level reassessed. Pain: Denies pain. 16:30 General: Appears uncomfortable, well groomed, well developed, well nourished, Behavior me1 is cooperative, appropriate for age, flat, quiet, Reports that he is here for a mental health checkup. He has thoughts of hurting/killing himself and has a plan that he would hang himself with a belt. States that he has not acted on the plan but that he has thought about it a lot. Denies fever, feeling ill, fatigue, chills. Pain: Denies pain. Neuro: Level of Consciousness is awake, alert, obeys commands, Oriented to person, place, time, situation, Appropriate for age. Cardiovascular: Capillary refill < 3 seconds Patient's skin is warm and dry. Respiratory: Airway is patent Respiratory effort is even, unlabored, Respiratory pattern is regular, symmetrical. 18:00 Reassessment: No changes from previously documented assessment. Patient and/or family me1 updated on plan of care and expected duration. Pain level reassessed. Pain: Denies pain. 20:00 Reassessment: No changes from previously documented assessment. Patient and/or family me1 updated on plan of care and expected duration. Pain level reassessed. Pain: Denies pain. 22:00 Reassessment: No changes from previously documented assessment. Patient and/or family me1 updated on plan of care and expected duration. Pain level reassessed. Pain: Denies pain. 22:42 Reassessment: Nurse to nurse given to Abbi with [facility]. cm10 23:01 General: Rec'd call from Robles with [facility] with approval from the and [facility] senior linux systems administrator. Accepting is Dr Fidelina Lerner and the senior linux systems administrator is Farrah Dumas. Per Robles patient can come at anytime now.. 23:31 Reassessment: Patient appears in no apparent distress at this time. No changes from [facility] previously documented assessment. Patient and/or family updated on plan of care and expected duration. Pain level reassessed. 23:43 Reassessment: Patient appears in no apparent distress at this time. No changes from [facility] previously documented assessment. Patient and/or family updated on plan of care and expected duration. Pain level reassessed. Psych: 16:30 [place] Suicide Severity Screening: In the past month, have you wished you were me1 or wished you could go to sleep and not wake up? Patient responds "yes." "In the past month, have you actually had any thoughts of killing yourself?" Patient responds "yes." Reports he has thoughts of killing himself and has a plan but has never attempted suicide. 16:30 [place] Suicide Severity Screening: "In your lifetime, have you ever done anything, me1 started to do anything, or prepared to do anything to end your life?" Patient responds "no.". Subjective: Patient's mood is sad, hopeless, Delusions are denied, Hallucinations are denied Having thoughts of suicide. Plan for suicide is to hang himself with a belt. Objective: Patient is cooperative. Interventions: Removed personal items and placed in bag. Patient placed in hospital gown. Searched person for dangerous items. Urine collected and sent for urine drug test. Belonging list filled out. Patient reassessed during use of restraints. Patient is physically safe. Patient's cardiac status is stable. Patient's respirations are even and unlabored. Patient has good circulation in all extremities as indicated by capillary refill < 3 seconds. Patient's ROM assessed and is intact. Patient nutrition and hydration needs will continue to be monitored and addressed. Patient hygiene and elimination needs met. Patient assessed for signs of distress. Patient remains reasonably comfortable at this time. Assisted patient in de-escalation of behavior by removing stimuli causing behavior where possible. Safety Checks: Personal items have been removed. Door is open. Visitors are present. Pt denies substance abuse. Commitment: Patient will be a voluntary commitment. Vital Signs: 14:21 BP 142 / 90; Pulse 103; Resp 18; Temp 98.2; Pulse Ox 100% ; Weight 88.45 kg; Height 5 cm10 ft. 10 in. ; 22:45 BP 142 / 72; Pulse 101; Resp 17; Temp 98.7(O); Pulse Ox 96% on R/A; Pain 0/10; me1 23:50 BP 138 / 94; Pulse 91; Resp 18 S; Temp 98.1(TE); Pulse Ox 98% on R/A; as6 14:21 Body Mass Index 27.98 (88.45 kg, 177.8 cm) cm10 22:45 Pain Scale: Adult me1 ED Course: 13:54 Patient arrived in ED. rg4 14:16 Rene Barnard MD is Attending Physician. darwin 14:24 Triage completed. cm10 14:25 Arm band placed on Patient placed in an exam room, in the treatment room. cm10 14:42 Sophia Vazquez, RN is Primary Nurse. cm10 14:59 Acetaminophen Sent. bc6 14:59 Basic Metabolic Panel Sent. bc6 14:59 CBC with Diff Sent. bc6 14:59 ETOH Level Sent. bc6 14:59 Hepatic Function Sent. bc6 14:59 PT-INR Sent. bc6 14:59 Ptt, Activated Sent. bc6 14:59 Salicylate Sent. bc6 15:00 Urinalysis w/ reflexes Sent. bc6 15:00 Urine Drug Screen Sent. bc6 15:00 Inserted saline lock: 22 gauge in right antecubital area, using aseptic technique. bc6 Blood collected. 16:30 Patient has correct armband on for positive identification. Bed in low position. Call me1 light in reach. Side rails up X2. Provided Education on: POC. Verbalized understanding. . 16:30 No provider procedures requiring assistance completed. me1 16:52 faxed patient clincals to the following facilities in attempt to find placement/ [facility]. 21:43 Carol Dumont, RN is Primary Nurse. me1 21:43 BMP Sent. me1 23:24 IV discontinued, intact, bleeding controlled, No redness/swelling at site. Pressure me1 dressing applied. Administered Medications: 14:59 Drug: NS 0.9% IV 1000 ml Route: IV; Rate: 1 bolus; Site: right antecubital; ld1 19:11 Follow up: IV Status: Completed infusion; IV Intake: 1000ml me1 18:29 Drug: Potassium PO Effervescent Tablet 50 mEq Route: PO; me1 19:29 Follow up: Response: No adverse reaction cm10 21:02 Follow up: Response: No adverse reaction me1 20:57 Not Given (K+ replaced. ): Potassium PO Effervescent Tablet 25 mEq PO once; dissolve in me1 4 ounces of water or juice Medication: 16:30 VIS not applicable for this client. me1 Intake: 19:11 IV: 1000ml; Total: 1000ml. me1 Outcome: 16:39 ER care complete, transfer ordered by MD. granados 23:48 Transferred by ground EMS to other acute care facility: [facility].. me1 23:48 Condition: stable 23:48 Discharge instructions given to patient, family, Instructed on the need for transfer. 23:57 Patient left the ED. me1 Signatures: Rene Barnard MD MD cha Garcia, Rubi rg4 Brynn Watt Lauren, RN RN ld1 Joreg Chris RN RN as6 Dalila Ceja Clarissa RN RN cm10 Carol Dumont RN RN me1 Corrections: (The following items were deleted from the chart) 15:21 14:21 Risk Assessment: Do you want to hurt yourself or someone else? Patient reports no me1 desire to harm self or others. cm10 22:46 22:42 Reassessment: Nurse to nurse given [facility]. cm10 cm10
[2023-04-09] MEDS ORDERED: POTASSIUM 25 MEQ EFFERV TAB ONE (18:38)
[2023-04-09 22:06] LABS: Potassium 3.4 mEq/L (3.5-5.1)
[2023-04-10 01:30] VITALS: BP 142/72; TEMP 98.7; O2SAT 96
--- NOTE | 2023-04-10 12:15 | EKG ---
Test Date: 2023-04-09 Test Time: 15:06:46 Trailer Chief: JAVI MEASUREMENT RESULTS: Intervals: Rate: 100 IN: 138 QRSD: 86 QT: 386 QTc: 497 [place]: P: 78 IN: 138 QRS: 82 T: 61 INTERPRETIVE STATEMENTS: Normal sinus rhythm Prolonged QT Abnormal ECG Compared to ECG 11/04/2018 08:47:34 Prolonged QT interval now present Sinus tachycardia no longer present ST (T wave) deviation no longer present Electronically Signed On 04-10-23 12:12:32 CDT by Tim Banda
== END 2023-04-09 23:57 ==
LOC: ER 13:52
DX: R45.851 Suicidal ideations (principal); F43.23 Adjustment disorder with mixed anxiety and depressed mood; I10 Essential (primary) hypertension
CPT/HCPCS: 85025; 81001; 80048 ×2; 36415; 85610; 80076; 85730; 80307; 80143; 82077; J7030; 93005; 96360; 96361; 99285